=== PATIENT | male | born 1930 | race Caucasian/White ===

== ENCOUNTER 2016-12-16 02:48 | Inpatient (IN) | payer MEDICARE, MEDICAID ==
[~2016-12-16] VITALS: Ht 172.7 cm; Wt 72.8 kg
[~2016-12-16 02:48] MED LIST: BACT800T5 PO; COMB0.2S OU; FLOM5CAP PO; NEXI40CA PO; TIMO5OPD OU; TOPR50TA PO; TRAV04OPD OU; TYLE167L PO
[2016-12-16] MEDS ORDERED: ONDANSETRON 4MG/2ML VIAL (J2405) IV ONE (04:00)
[2016-12-16] MEDS ORDERED: MORPHINE 2 MG/ML 1ML SYRINGE IV PRN (04:00)
[2016-12-16 04:09] LABS: BASO % 0.6 % (0.0-1.0); EOS # 0.3 K/mm3 (0.0-0.50); LARGE UNSTAINED CELL # 0.1 K/mm3 (0.0-0.4); LYMPH # 1.6 K/mm3 (1.5-4.5); LYMPH % 17.5 % (24.0-44.0); MEAN CORPUSCULAR HEMOGLOBIN 31.7 pg (27.0-33.0); MEAN CORPUSCULAR HGB CONC 34.1 g/dl (32.0-36.5); MONO # 0.4 K/mm3 (0.0-0.8); MONO % 4.5 % (0.0-5.0); NEUTROPHILS # 6.4 K/mm3 (1.8-7.7); NEUTROPHILS % 73.5 % (36.0-66.0); PLATELET COUNT, AUTOMATED 191 k/mm3 (150-450); RED CELL DISTRIBUTION WIDTH 13.6 % (11.5-14.5); WHITE BLOOD COUNT 8.7 K/mm3 (4.0-10.0)
[2016-12-16 04:18] LABS: ANION GAP 5 MEQ/L (8-16); BLOOD UREA NITROGEN 18 MG/DL (7-18); CALCIUM LEVEL 8.9 MG/DL (8.8-10.2); CARBON DIOXIDE LEVEL 27 MEQ/L (21-32); CHLORIDE LEVEL 107 MEQ/L (98-107); CREATININE FOR GFR 2.05 MG/DL (0.70-1.30); GLOMERULAR FILTRATION RATE 33.1 (>35); GLUCOSE, FASTING 115 MG/DL (83-110); POTASSIUM SERUM 4.8 MEQ/L (3.5-5.1); SODIUM LEVEL 139 MEQ/L (136-145)
[2016-12-16] MEDS ORDERED: LevoFLOXacin IV 750 MG in APPROPRIATE DILUENT 1 EA IV ONE (05:45)
[2016-12-16] MEDS ORDERED: BETA0.5S9 OU (06:24)
--- NOTE | 2016-12-16 08:19 | REP ---
Chest one-view HISTORY: Chest pain Comparison: 02/03/2014 The lungs are clear. The heart is normal in size. The pulmonary vasculature is normal in appearance. Impression: No acute disease. Signed by Patrice Spivey MD 12/16/2016 08:11 A
[2016-12-16 08:35] VITALS: BP 187/85
--- NOTE | 2016-12-16 08:59 | REP ---
CT CHEST WITHOUT IV CONTRAST: CT chest performed without IV contrast, with sagittal and coronal reconstruction images performed. There is scattered interstitial fibrotic change. No acute infiltrate is seen. A few tiny calcified granulomas are seen bilaterally. There is mild bronchiectasis particularly in the lower lobes bilaterally. There is mild cardiomegaly. There is no pleural or pericardial effusion. No significant adenopathy is seen. There is a moderate hiatal hernia. Tiny calcified granulomas are seen in the spleen. IMPRESSION: Moderate sized hiatal hernia. Chronic changes in the lungs as discussed above. Signed by Cristian Thapa MD 12/16/2016 04:22 P
[2016-12-16] MEDS ORDERED: PANTOPRAZOLE 40MG TAB (PROTONIX) PO SCH (09:00)
[2016-12-16] MEDS ORDERED: METOCLOPRAMIDE 5 MG TAB PO PRN (10:15)
[2016-12-16] MEDS ORDERED: NITROGLYCERIN 0.4 MG SUBL TABLET SL PRN (10:45)
[2016-12-16] MEDS ORDERED: amLODIPine 5 MG TAB PO ONE (11:00)
[2016-12-16] MEDS ORDERED: GI COCKTAIL 50ML BTL(HYOSCYAMINE/MAALOX/LIDOCAINE VISCOUS)(1:3:1) PO ONE (11:00)
[2016-12-16] MEDS: HEPARIN SOD (PORCINE) 5000 UNITS/ML VIAL SQ SCH ×2 (11:17→21:55)
[2016-12-16] MEDS: PANTOPRAZOLE 40MG TAB (PROTONIX) PO SCH ×2 (11:17→21:55)
[2016-12-16] MEDS: METOPROLOL SUCC (TopROL XL) 50MG **XL** TAB PO SCH ×2 (11:18→21:00)
[2016-12-16] MEDS: SUCRALFATE 1 GM TAB PO SCH ×3 (11:18→21:55)
[2016-12-16 12:00] VITALS: BP 137/80
[2016-12-16] MEDS: BETAXOLOL 0.5% OU SCH ×2 (12:30→21:00)
[2016-12-16 16:00] VITALS: BP 119/58
--- NOTE | 2016-12-16 16:33 | HPE ---
DATE OF ADMISSION: 12/16/2016 CHIEF COMPLAINT: Chest pain. 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 Patient was sitting in his chair, he felt some pain in the left shoulder and subsequent left anterior chest pain with no radiation, worse when he took a deep breath accompanied by some cough, white sputum production, no fever or chills but usually feels cold at times. Patient had no chest heaviness, dizziness, lightheadedness, nausea or vomiting. Denies any shortness of breath. Patient denies any history of dysphasia or odynophagia. He has had a three pound weight loss from 183 pounds to 180 pounds. Denies any palpitations. Describes the pain as sharp in the left anterior chest, no radiation, no feeling of impending doom. No medications were taken at home aside from his chronic Prilosec and Nexium. He otherwise denies any hematemesis, bright red blood per rectum, melena, or black tarry stools. Patient was seen in the emergency room, EKG was unremarkable. No acute CT wave changes. Hospitalist was called for possible left lower lobe pneumonia. Upon interrogation, patient did not appear to have any signs or symptoms of infection. CT chest obtained showed chronic changes with clear lungs, no infiltrate. Formal report of chest x-ray shows no acute disease. Pulmonary vasculature is normal in appearance. Lungs are clear. Heart size is normal. CT chest showed moderate sized hiatal hernia and chronic changes in the lungs with scattered interstitial fibrosis, mild bronchiectasis in the lower lobes bilaterally but no acute infiltrates seen. Patient is admitted to rule out acute coronary syndrome and evaluate for atypical chest pain. PAST MEDICAL HISTORY: 1. Hypertension. 2. Urinary tract infection. 3. Chronic kidney disease stage 3. 4. Reflux. 5. Glaucoma. 6. Hiatal hernia. 7. 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 8. Left lower extremity osteomyelitis and trauma leading to left lower extremity amputation. PAST SURGICAL HISTORY: 1. Left hip repair. 2. Left leg amputation secondary to trauma and recurrent osteomyelitis. 3. Appendectomy. FAMILY HISTORY: Non-contributory. SOCIAL HISTORY: , but , lives with son. Denies alcohol or tobacco use. Two birds, no cats or dogs, no sick contacts. ALLERGIES: PENICILLIN from years ago. HOME MEDICATION: - metoprolol 50 mg twice a day - Nexium 40 mg daily - Combigan opthalmic solution, one drop both eyes twice a day - Travatan opthalmic solution, one drop daily both eyes - Timolol one drop both eyes twice a day REVIEW OF SYSTEMS: Per HPI. 12-point system negative aside from positive findings on history of present illness. PHYSICAL EXAMINATION: Vital signs: Temperature 98.8, pulse 72, respiratory 16, blood pressure 165/89, 87% on 2 liters nasal cannula. GENERAL: Awake, alert, and oriented times three, edentulous. Appears stated age , no jugular venous distention. No thyromegaly. Pupils equal, round, reactive to light. Extraocular muscles are intact. Normocephalic, atraumatic. LUNGS: Clear to auscultation. No wheezing, rales or rhonchi. NECK: Supple, full range of motion. No cervical lymphadenopathy or thyromegaly or jugular venous distention. HEART: S1, S2, sinus rhythm. No murmurs, rubs or gallops. ABDOMEN: Soft, non-tender, non-distended. Positive bowel sounds. EXTREMITIES: Left lower extremity amputation. Right lower extremity no edema. Blood culture is pending. LABORATORY DATA: White count 8l7, hemoglobin 15, hematocrit 45, platelets 191. 73% neurophil. Sodium 139, potassium 4.8, chloride 107, bicarbonate 27, BUN 18, creatinine 2, glucose 115. Total CK 69, MB fraction 1. Troponin less than 0.02. BNP 223. Microbiology: Blood culture is pending. IMAGING: Chest x-ray no acute disease. CT chest shows moderate sized hiatal hernia. Chronic changes in the lungs. 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 Chest x-ray was negative. EKG was unremarkable for acute ischemia, with troponin negative times two sets. CT chest shows a moderate sized hiatal hernia, patient admitted for evaluation of atypical chest pain. CURRENT ISSUES: 1. Atypical chest pain, most likely GI in nature, troponin s negative, EKG is unremarkable. Patient will be treated symptomatically with GI cocktail as needed , Carafate and Protonix 40 twice a day. Obtain H. pylori serum antibody, IgM and IgG serologies as well as upper GI series, rule out acute ulcer or obstruction. Patient has had a 3 pound weight loss, but denies any dysphasia or odynophagia to necessitate further workup with EGD. If persistent symptoms however may be referred as outpatient to circulating process inspector for further work up. Due to the chest pain, advanced age, hypertension, cardiovascular risk factors, will check lipid panel in the morning. Nitroglycerine as needed. Cycle cardiac markers every 6 hours. 2. Hypertension. Uncontrolled secondary to pain. Resume home dose of metoprolol. Norvasc if needed. Check lipid profile. 3. 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 4. Chronic kidney disease. Avoid nephrotoxins. Renally dose all medications. At baseline creatine. 5. History of reflux. Continue PPI change to twice a day dosing. 6. History of glaucoma. Continue with home eye drops, Combigan, Travatan, Timolol. 7. Deep vein thrombosis prophylaxis with subcutaneous Heparin. 8. PT clearance prior to discharge home. Discharge plan in the morning. MTDD
[2016-12-16] MEDS ORDERED: GI COCKTAIL 50ML BTL(HYOSCYAMINE/MAALOX/LIDOCAINE VISCOUS)(1:3:1) PO PRN (17:00)
--- NOTE | 2016-12-16 18:26 | ECGEPIP ---
Stationary ECG Study [facility] - ED Test Date: 2016-12-16 Pat Name: JOSÉ MIGUEL MANZANARES Department: Room: - Gender: M Clinical Support Tech: skip : 1930 Requested By: SHANIA Lopes Order Number: [id number] Reading MD: Cintia Escudero Measurements Intervals [place] Rate: 70 P: -37 NV: 156 QRS: -30 QRSD: 89 T: 18 QT: 386 QTc: 417 Interpretive Statements SINUS RHYTHM BORDERLINE LEFT AXIS DEVIATION NO PRIOR FOR COMPARISON Electronically Signed On 12-16-2016 18:26:05 EDT by Cintia Escudero
[2016-12-16 21:00] VITALS: BP 119/58
[2016-12-16] MEDS ORDERED: OPTHALMIC OU SCH (21:00)
[2016-12-16] MEDS ORDERED: COMBIGAN OU SCH (21:00)
[2016-12-16] MEDS ORDERED: LATANOPROST 0.005% OPHTH SOLN 2.5 ML OU SCH (21:00)
--- NOTE | 2016-12-16 23:13 | ECGEPIP ---
Stationary ECG Study [facility] Test Date: 2016-12-16 Pat Name: JOSÉ MIGUEL MAZNANARES Department: Room: [place] [address] Gender: M Cost Recovery Technician: [place] : 1930 Requested By: ZAIN Beltran Order Number: [id number] Reading MD: Nicola Doyle Measurements Intervals [place] Rate: 71 P: 53 VT: 162 QRS: -28 QRSD: 97 T: 29 QT: 376 QTc: 409 Interpretive Statements SINUS RHYTHM LEFT AXIS DEVIATION low precordial voltages. No significant change compared with 12/16/2016. Electronically Signed On 12-16-2016 23:13:15 EDT by Nicola Doyle
[2016-12-16 23:59] VITALS: BP 139/81
[2016-12-17 04:00] VITALS: BP 132/76
[2016-12-17 05:52] LABS: BASO % 0.5 % (0.0-1.0); EOS # 0.1 K/mm3 (0.0-0.50); EOS % 1.6 % (0.0-3.0); LARGE UNSTAINED CELL # 0.2 K/mm3 (0.0-0.4); LYMPH % 23.8 % (24.0-44.0); MEAN CORPUSCULAR HEMOGLOBIN 30.9 pg (27.0-33.0); MEAN CORPUSCULAR HGB CONC 32.4 g/dl (32.0-36.5); MEAN CORPUSCULAR VOLUME 95.4 fl (80.0-96.0); MONO # 0.5 K/mm3 (0.0-0.8); MONO % 6.4 % (0.0-5.0); NEUTROPHILS # 5.2 K/mm3 (1.8-7.7); NEUTROPHILS % 65.8 % (36.0-66.0); PLATELET COUNT, AUTOMATED 174 k/mm3 (150-450); RED CELL DISTRIBUTION WIDTH 13.7 % (11.5-14.5); WHITE BLOOD COUNT 7.9 K/mm3 (4.0-10.0)
[2016-12-17 06:19] LABS: ANION GAP 7 MEQ/L (8-16); BLOOD UREA NITROGEN 21 MG/DL (7-18); CALCIUM LEVEL 8.5 MG/DL (8.8-10.2); CARBON DIOXIDE LEVEL 24 MEQ/L (21-32); CHLORIDE LEVEL 109 MEQ/L (98-107); CHOLESTEROL LEVEL 184 MG/DL (<200); CREATININE FOR GFR 2.13 MG/DL (0.70-1.30); GLOMERULAR FILTRATION RATE 31.7 (>35); GLUCOSE, FASTING 87 MG/DL (83-110); POTASSIUM SERUM 4.5 MEQ/L (3.5-5.1); SODIUM LEVEL 140 MEQ/L (136-145); TRIGLYCERIDES LEVEL 138 MG/DL (<150)
[2016-12-17] MEDS ORDERED: MOXIFLOXACIN HCL 400 MG in APPROPRIATE DILUENT 1 EA IV SCH (07:00)
[2016-12-17 07:45] VITALS: BP 181/83
[2016-12-17] MEDS ORDERED: amLODIPine 5 MG TAB PO SCH (09:00)
[2016-12-17] MEDS ORDERED: COMBIGAN OU SCH (09:00)
[2016-12-17] MEDS ORDERED: OPTHALMIC OU SCH (09:00)
[2016-12-17] MEDS ORDERED: BETAXOLOL 0.5% OU SCH (09:00)
[2016-12-17] MEDS: SUCRALFATE 1 GM TAB PO SCH ×2 (09:25→12:12)
[2016-12-17] MEDS: HEPARIN SOD (PORCINE) 5000 UNITS/ML VIAL SQ SCH (09:26)
[2016-12-17 10:23] LABS: CONTROL LINE HPYORI INT CTR LINE PRESENT
[2016-12-17] MEDS ORDERED: SUCR1TA PO (11:10)
[2016-12-17] MEDS ORDERED: PANT40TA2 PO (11:10)
--- NOTE | 2016-12-17 12:10 | REP ---
LEFT SHOULDER, THREE VIEWS: HISTORY: Pain. There is no acute fracture or dislocation. There is narrowing of the joint spaces. Osteophytes are present at the acromioclavicular joint. IMPRESSION: Degenerative change as described above. Signed by Patrice Spivey MD 12/17/2016 12:17 P
[2016-12-17] MEDS: METOPROLOL SUCC (TopROL XL) 50MG **XL** TAB PO SCH (12:12)
[2016-12-17] MEDS: PANTOPRAZOLE 40MG TAB (PROTONIX) PO SCH (12:12)
--- NOTE | 2016-12-18 14:32 | DSES ---
DATE OF ADMISSION: 12/16/2016 DATE OF DISCHARGE: 12/17/2016 PRIMARY CARE PROVIDER: Bates Homar PRIMARY DISCHARGE DIAGNOSES: 1. Atypical chest pain. 2. Moderate hiatal hernia. 3. Probable gastritis or esophagitis. 4. History of chronic kidney disease stage III. 5. Chronic glaucoma. 6. History of left lower extremity amputation secondary to osteomyelitis and trauma. 7. Hypertension. DISCHARGE MEDICATIONS: - Carafate 1 gram before food and nightly - Protonix 40 mg twice a day - Norvasc 5 mg daily - metoprolol 50 mg twice a day - betaxolol one drop both eyes twice a day - Combigan one drop both eyes twice a day - Travatan C one drop both eyes at night FOLLOWUP ISSUES: The patient will need a referral to executive administrative asst due to atypical chest pain to rule out peptic ulcer disease. Currently on Carafate and proton pump inhibitor for moderate sized hiatal hernia and possible gastritis, left shoulder pain, patient refused x-ray of her left shoulder, complains of pain but refused evaluation. HOSPITAL COURSE: This is an 86-year-old male with a history of moderate hiatal hernia, chronic kidney disease stage III, baseline creatinine 1.92, hypertension , reflux, glaucoma, right ear deafness, left lower extremity amputation due to trauma and osteomyelitis, appendectomy, presented to the emergency room with acute onset of left sided chest pain that started while he was watching television at home sitting in his chair with no radiation. Accompanied with some cough, no sputum production or fevers. He denied any chest heaviness, dizziness , lightheadedness, nausea, or vomiting. Pleuritic in nature. No medications were taken at home. Does not change with position. The patient had a 3 pound weight loss but denies dysphagia or odynophagia. No prior esophagogastroduodenoscopy (EGD) in the past. Otherwise denies hematemesis, bright red blood per rectum, melena, black tarry stools. In the emergency room, EKG was unremarkable and shows left axis deviation but no acute ST-T changes. Chest x-ray was read as pneumonia. Hospitalist service was called by the emergency room for admission for left lower lobe pneumonia. Official reading on chest x-ray showed no acute disease. The patient did receive one dose of Levaquin. CT of the chest to rule out other etiologies showed moderate sized hiatal hernia, but no acute lung changes aside from mild bronchiectasis. The patient was given Carafate and Protonix with resolution of the chest pain, nitroglycerin as needed. He was sent for upper GI series, which he refused. He still complains of left shoulder pain. X-ray was ordered. The patient had no joint effusion. No fever or chills. He is discharged in stable condition to followup with his primary care physician. Cardiac markers were negative times three. Repeat EKG showed sinus rhythm, left axis deviation with no acute ST-T wave changes. LABORATORY DATA ON DISCHARGE: White count 7.9, hemoglobin 14, hematocrit 43, platelet count 174. Sodium 140, potassium 4.5, chloride 109, bicarbonate 24, BUN 21, creatinine 2.13 , glucose of 87. Influenza A and B on 12/17/2016 was negative. Methicillin resistant Staphylococcus aureus (MRSA) screen pending. Respiratory panel negative. Chest x-ray showed no active disease. Chest CT showed moderate sized hiatal hernia. Shoulder x-ray on the left pending official report. The patient refused upper GI series. Time spent on discharge: 30 minutes. LONNIE
== END 2016-12-17 13:36 | disposition home or self-care (01) | DRG 313 ==
LOC: M ED 02:48 → EDBD 02:48 → M ED INP 07:30 → M PCU 08:35
PROVIDERS: ADMIT General Practice; ATTEND General Practice
DX: R07.89 Other chest pain (principal); N18.3 Chronic kidney disease, stage 3 (moderate); I12.9 Hypertensive chronic kidney disease with stage 1 through stage 4 chronic kidney disease, or unspecified chronic kidney disease; Z79.899 Other long term (current) drug therapy; K44.9 Diaphragmatic hernia without obstruction or gangrene; H40.9 Unspecified glaucoma; K29.70 Gastritis, unspecified, without bleeding; K20.9 Esophagitis, unspecified; Z88.0 Allergy status to penicillin

== ENCOUNTER 2019-07-19 17:34 | Inpatient (IN) | payer MEDICARE, MEDICAID ==
[~2019-07-19] VITALS: Ht 175.3 cm; Wt 69.0 kg
[~2019-07-19 17:34] MED LIST changes: +BETA0.5S9 OU; +FLOM0.4C39 PO; -FLOM5CAP PO; +PANT40TA3 PO; +SUCR1TA PO
[2019-07-19 18:58] LABS: BASO % 0.3 % (0.0-1.0); EOS # 0.1 10^3/uL (0.0-0.5); EOS % 0.9 % (0.0-3.0); HEMOGLOBIN 13.6 g/dl (13.5-17.5); LYMPH % 9.1 % (24.0-44.0); MEAN CORPUSCULAR HEMOGLOBIN 28.2 pg (27.0-33.0); MEAN CORPUSCULAR HGB CONC 31.6 g/dl (32.0-36.5); MONO # 0.7 10^3/uL (0.0-0.8); MONO % 5.8 % (0.0-5.0); NEUTROPHILS # 9.4 10^3/uL (1.5-8.5); NEUTROPHILS % 83.3 % (36.0-66.0); PLATELET COUNT, AUTOMATED 238 10^3/uL (150-450); RED BLOOD COUNT 4.83 10^6/uL (4.30-6.10); WHITE BLOOD COUNT 11.3 10^3/uL (4.0-10.0)
[2019-07-19] MEDS ORDERED: NS 1,000 ML IV SCH (19:28)
[2019-07-19 19:31] LABS: ALBUMIN 2.5 GM/DL (3.2-5.2); BILIRUBIN,DIRECT 0.5 MG/DL (0.0-0.2); BILIRUBIN,TOTAL 0.9 MG/DL (0.2-1.0); CALCIUM LEVEL 8.4 MG/DL (8.8-10.2); CREATININE FOR GFR 5.51 MG/DL (0.70-1.30); FREE T4 1.53 NG/DL (0.76-1.46); GLOMERULAR FILTRATION RATE 10.5 (>35); POTASSIUM SERUM 3.5 MEQ/L (3.5-5.1); THYROID STIMULATING HORMONE 0.823 uIU/ML (0.358-3.740); TOTAL PROTEIN 7.6 GM/DL (6.4-8.2)
[2019-07-19 19:50] LABS: CK-MB VALUE MASS 1.1 NG/ML (<3.6); MB/CK RELATIVE INDEX 2.5 (< OR =4); TROPONIN I 0.32 NG/ML (< 0.10)
--- NOTE | 2019-07-19 20:10 | ECGEPIP ---
[facility] - ED Test Date: 2019-07-19 Pat Name: JOSÉ MIGUEL MANZANARES Department: Room: - Gender: Male Certified Athletic Trainer: RAMÍREZ : 1930 Requested By: NASIR Remy Order Number: [id number] Reading MD: Cintia Escudero Measurements Intervals [place] Rate: 85 P: 93 VA: 153 QRS: 9 QRSD: 89 T: 46 QT: 367 QTc: 438 Interpretive Statements SINUS RHYTHM MODERATE ST DEPRESSION baseline artifact may affect interpretation PRIOR OLD INFERIOR INFARCT INCREASED RATE 12/16/16 Electronically Signed on 07-19-2019 20:10:48 EST by Cintia Escudero
[2019-07-19] MEDS ORDERED: TRUS1SOL OU (20:17)
[2019-07-19] MEDS ORDERED: HYDR12.55 PO (20:17)
--- NOTE | 2019-07-19 20:58 | REPVR ---
PROCEDURE INFORMATION: Exam: CT Head Without Contrast Exam date and time: 07/19/2019 7:42 PM Age: 89 years old Clinical indication: Pain; Headache; Additional info: Altered mental status TECHNIQUE: Imaging protocol: Computed tomography of the head without contrast. Radiation optimization: All CT scans at this facility use at least one of these dose optimization techniques: automated exposure control; mA and/or kV adjustment per patient size (includes targeted exams where dose is matched to clinical indication); or iterative reconstruction. COMPARISON: CT Head without contrast 11/28/2013 2:31 PM FINDINGS: Brain: There is no acute cortical infarction, intracranial hemorrhage or mass.There is mild diffuse heterogeneity of the white matter attenuation, consistent with chronic white matter ischemic changes. Probable dilated perivascular space along the anterior commissure on the left versus prior lacunar infarction posterior margin left lentiform nucleus-unchanged. Ventricles: The ventricles appear enlarged, but not out of proportion to the degree of parenchymal volume loss. Bones/joints: Unremarkable. No acute fracture. Sinuses: Visualized sinuses are unremarkable. No fluid levels. Mastoid air cells: Visualized mastoid air cells are well aerated. Soft tissues: Unremarkable. Vasculature: Atherosclerosis. IMPRESSION: No acute intracranial findings. Electronically signed by: Amy Flores On 07/19/2019 20:58:01 PM
--- NOTE | 2019-07-19 21:25 | REPVR ---
PROCEDURE INFORMATION: Exam: CT Abdomen And Pelvis Without Contrast Exam date and time: 07/19/2019 8:53 PM Age: 89 years old Clinical indication: Abnormal findings; Abnormal lab test; Abnormal kidney function lab tests; Additional info: Gen abd pain TECHNIQUE: Imaging protocol: Computed tomography of the abdomen and pelvis without contrast. Radiation optimization: All CT scans at this facility use at least one of these dose optimization techniques: automated exposure control; mA and/or kV adjustment per patient size (includes targeted exams where dose is matched to clinical indication); or iterative reconstruction. COMPARISON: CT ABD PELVIS W/O CONTRAST 11/28/2013 4:10 PM FINDINGS: Lungs: There is eventration of the posterior margin of the left hemidiaphragm with associated consolidation left lower lobe. Pleural space: There is a left pleural effusion. Mediastinum: There is a hiatal hernia. Liver: There are no focal liver lesions present. Gallbladder and bile ducts: The gallbladder is normal. Pancreas: There is diffuse, benign fatty infiltration of the pancreas. Spleen: The spleen is normal. Adrenals: The adrenal glands are normal. Kidneys and ureters: The left kidney is atrophic. There is bilateral perinephric stranding. There is mild bilateral hydronephrosis without dilatation of the ureters. Stomach and bowel: There is no evidence of intestinal obstruction. Appendix: No evidence of appendicitis. Intraperitoneal space: Unremarkable. No free air. No significant fluid collection. Vasculature: There is no evidence of an abdominal aortic aneurysm. The vasculature demonstrates diffuse moderate atherosclerotic calcification. Lymph nodes: Unremarkable. No enlarged lymph nodes. Bladder: There is bladder wall thickening and small diverticula. Reproductive: Unremarkable as visualized. Bones/joints: Left hip plate and compression screw apparent. Skeletal degeneration with partial fusion of the sacroiliac joints. Soft tissues: Unremarkable. IMPRESSION: No acute findings in the abdomen and pelvis on this noncontrast examination. There is consolidation in the left lower lobe which is only partially imaged and could be due to subsegmental atelectasis, pneumonia or less likely a mass. There is a small left pleural effusion. Bladder wall thickening which may be associated with prostatic hypertrophy. There is mild bilateral hydronephrosis without hydroureters. Electronically signed by: Amy Flores On 07/19/2019 21:24:22 PM
[2019-07-19] MEDS ORDERED: AZITHROMYCIN INJ 500 MG, VIAL MATE ADAPTER 1 EACH in D5W 250 ML IV ONE (22:30)
[2019-07-19] MEDS ORDERED: cefTRIAXone SOD 1 GM in D5W MINI-BAG PLUS 50 ML IV ONE (22:30)
--- NOTE | 2019-07-19 23:58 | HPEPDOC ---
General Date of Admission 07/19/19 Date of Service: Jul 19, 2019 Chief Complaint The patient is a 89-year-old male admitted with a reason for visit of Groin Pain. Source: Patient Exam Limitations: Hard of hearing Timing/Duration: 4-6 hours Severity: Moderate Associated Symptoms: Weakness History of Present Illness Patient is 89 years old male with past medical history of hypertension, UTI, chronic kidney diseases stage III was admitted to the hospital with altered mental status. His son stated that he found the patient with altered mental status covered with urine and feces. On admission patient was disoriented, confused. In the ER patient was found to have mildly elevated leukocytes count 11.3, chest x-ray was negative for acute pulmonary infiltrate, troponin was elevated to 0.3, EKG showed depression ST in the anterolateral leads. Creatinine was significantly elevated of 5.5. CT abdomen showed No acute findings in the abdomen and pelvis on this noncontrast examination. Home Medications Scheduled Brimonidine Tartrate/Timolol (Combigan 0.2%-0.5% Eye Drops) 1 Fifi Fifi, 1 DROP OU BID, (Reported) Dorzolamide HCl (Trusopt) 2% 10ML Drops, 1 DROP OU TID, (Reported) 0700/1100/1500 Hydrochlorothiazide (Hydrochlorothiazide) 12.5 Mg Tablet, 12.5 MG PO DAILY, (Reported) Metoprolol Succinate (Toprol Xl) 50 Mg Tab, 50 MG PO BID, (Reported) Travoprost (Travatan Z) 50 Drop/2.5 Ml Soln, 1 DROP OU QHS, (Reported) Allergies Coded Allergies: Penicillins (Verified Adverse Reaction, Mild, 07/19/19) GI UPSET Past Medical History Medical History 1. Hypertension. 2. Urinary tract infection. 3. Chronic kidney disease stage 3. 4. Reflux. 5. Glaucoma. 6. Hiatal hernia. 7. 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 8. Left lower extremity osteomyelitis and trauma leading to left lower extremity amputation. Surgical History 1. Left hip repair. 2. Left leg amputation secondary to trauma and recurrent osteomyelitis. 3. Appendectomy. Family History I personally reviewed family history and found nonpertinent Social History * Smoker: Denies Alcohol: Denies Drugs: denies A-FIB/CHADSVASC A-FIB History Current/History of A-Fib/PAF?: No Current PO Anticoag Therapy: No Review of Systems Constitutional: Denies: Chills, Fever Eyes: Reports: Pain; Denies: Vision change ENT: Denies: Head Aches Skin: Denies: Rash Pulmonary: Denies: Dyspnea Cardiovascular: Denies: Chest Pain, Palpitations Gastrointestinal: Denies: Nausea, Vomiting Genitourinary: Reports: Dysuria; Denies: Frequency Hematologic: Denies: Bruising Endocrine: Denies: Polydipsia, Polyphagia Musculoskeletal: Denies: Neck Pain Neurological: Denies: Weakness Psych: Reports: Mood Normal Physical Examination General Exam: Positive: Other (somnolent and disoriented); Negative: Alert Eye Exam: Positive: PERRLA ENT Exam: Positive: Atraumatic Neck Exam: Positive: Supple; Negative: JVD Chest Exam: Positive: Diminished Heart Exam: Positive: Normal S1, Normal S2 Telemetry: Positive: No significant arrhythmia Abdomen Exam: Positive: Normal bowel sounds Extremity Exam: Negative: Clubbing, Cyanosis Skin Exam: Positive: Nl turgor and temperature Neuro Exam: Positive: Strength at 5/5 X4 ext, Cranial Nerves 3-12 NL Psych Exam: Positive: Other (somnolent and lethargic); Negative: Mental status NL Vital Signs Vital Signs Date Time Temp Pulse Resp B/P (MAP) Pulse Ox O2 Delivery O2 Flow Rate FiO2 07/19/19 21:15 86 18 122/74 (90) 94 Nasal Cannula 3.0 07/19/19 18:13 97.1 Laboratory Data Labs 24H Laboratory Tests 2 07/19/19 18:45: Immature Granulocyte % (Auto) 0.6, Neutrophils (%) (Auto) 83.3H, Lymphocytes (%) (Auto) 9.1L, Monocytes (%) (Auto) 5.8H, Eosinophils (%) (Auto) 0.9, Basophils (%) (Auto) 0.3, Neutrophils # (Auto) 9.4H, Lymphocytes # (Auto) 1.0L, Monocytes # (Auto) 0.7, Eosinophils # (Auto) 0.1, Basophils # (Auto) 0.0, Nucleated Red Blood Cells % (auto) 0.0, Anion Gap 14, Glomerular Filtration Rate 10.5L, Calcium Level 8.4L, Total Bilirubin 0.9, Direct Bilirubin 0.5H, Aspartate Amino Transf (AST/SGOT) 43H, Alanine Aminotransferase (ALT/SGPT) 28, Alkaline Phosphatase 104, Total Creatine Kinase 44, Creatine Kinase MB 1.1, Creatine Kinase MB Relative Index 2.50, Troponin I 0.32H, Total Protein 7.6, Albumin 2.5L, Albumin/Globulin Ratio 0.49L, Lipase 166, Thyroid Stimulating Hormone (TSH) 0.823, Free Thyroxine 1.53H 07/19/19 20:01: Urine Color YELLOW, Urine Appearance CLEAR, Urine pH 5.0, Urine Specific [place] 1.014, Urine Protein NEGATIVE, Urine Glucose (UA) NEGATIVE, Urine Ketones NEGATIVE, Urine Blood 2+H, Urine Nitrite NEGATIVE, Urine Bilirubin NEGATIVE, Urine Urobilinogen 0.2, Urine Leukocyte Esterase TRACEH, Urine WBC (Auto) 10H, Urine RBC (Auto) 13H, Urine Hyaline Casts (Auto) 0, Urine Bacteria (Auto) 1+H, Urine Squamous Epithelial Cells 0, Urine Mucus (Auto) SMALL, Urine Sperm (Auto) CBC/BMP Laboratory Tests 07/19/19 18:45 Microbiology Microbiology 07/19/19 Blood Culture, Received Pending 07/19/19 Blood Culture, Received Pending 07/19/19 Urine Culture, Received Pending Assessment/Plan Patient is 89 years old male with past medical history of hypertension, UTI, chronic kidney diseases stage III was admitted to the hospital with altered mental status. His son stated that he found the patient with altered mental status covered with urine and feces. On admission patient was disoriented, confused. In the ER patient was found to have mildly elevated leukocytes count 11.3, chest x-ray was negative for acute pulmonary infiltrate, troponin was elevated to 0.3, EKG showed depression ST in the anterolateral leads. Creatinine was significantly elevated of 5.5 Problems (1) Urinary tract infection Status: Acute Problem Text: Patient has a history of chronic urinary infection UA positive for bacteriuria Also patient was altered mental status Continue ceftriaxone (2) Elevated troponin Status: Acute Problem Text: Patient denied any chest pain Continue to monitor troponin Most likely demand ischemia, elevation of troponin can be secondary to acute renal failure Echo in the morning (3) Acute renal failure (ARF) Status: Acute Problem Text: Prerenal most likely secondary to dehydration IV fluid Continue to monitor will avoid nephrotoxic meds (4) Acute metabolic encephalopathy Problem Text: Most likely secondary to UTI Frequent re orientation (5) Physical deconditioning Status: Chronic Problem Text: PT/OT evaluation Plan / VTE VTE Prophylaxis Ordered?: Yes NIDIA KIM DO Jul 19, 2019 23:57
[2019-07-20] MEDS ORDERED: NS 1,000 ML IV SCH
[2019-07-20] MEDS: METOPROLOL SUCC (TopROL XL) 50MG **XL** TAB PO SCH ×3 (00:19→21:10)
[2019-07-20 03:30] VITALS: BP 133/75
[2019-07-20 05:04] LABS: HEMOGLOBIN 13.7 g/dl (13.5-17.5); MEAN CORPUSCULAR HGB CONC 31.1 g/dl (32.0-36.5); MEAN CORPUSCULAR VOLUME 89.8 fl (80.0-96.0); PLATELET COUNT, AUTOMATED 221 10^3/uL (150-450); WHITE BLOOD COUNT 9.6 10^3/uL (4.0-10.0)
[2019-07-20 05:29] LABS: CALCIUM LEVEL 8.6 MG/DL (8.8-10.2); CREATININE FOR GFR 4.99 MG/DL (0.70-1.30); GLOMERULAR FILTRATION RATE 11.8 (>35); MAGNESIUM LEVEL 2.2 MG/DL (1.8-2.4); MB/CK RELATIVE INDEX 3.77 (< OR =4); POTASSIUM SERUM 3.2 MEQ/L (3.5-5.1); TROPONIN I 0.68 NG/ML (< 0.10)
[2019-07-20] MEDS ORDERED: POTASSIUM CHLORIDE 10 MEQ SR TABLET PO ONE (06:15)
[2019-07-20 08:00] VITALS: BP 118/70
--- NOTE | 2019-07-20 08:09 | REP ---
Clinical: Altered mental status. Technique: PA and lateral. Comparison: 02/03/2014. Findings: Mediastinum and cardiac silhouette are stable. Lung dudley demonstrate chronic emphysematous changes and scattered scarring. Superimposed left lower lobe opacity noted. No pneumothorax. Skeletal structures intact. Impression: Left lower lobe consolidation / opacity. Follow up required. Electronically Signed by Wilver Cortes MD 07/20/2019 07:59 A
[2019-07-20] MEDS: HEPARIN SOD (PORCINE) 5000 UNITS/ML VIAL (J1644 PER 1000UNITS) SC SCH ×2 (08:18→21:10)
[2019-07-20] MEDS: cefTRIAXone SOD 1 GM in D5W MINI-BAG PLUS 50 ML IV SCH ×2 (08:18→21:11)
[2019-07-20] MEDS: DORZOLAMIDE 2% OPHTH SOLN 10 ML BTL OU SCH ×3 (08:22→21:10)
[2019-07-20 11:12] LABS: CK-MB VALUE MASS 2.5 NG/ML (<3.6); MB/CK RELATIVE INDEX 3.91 (< OR =4); TROPONIN I 0.56 NG/ML (< 0.10)
[2019-07-20 12:00] VITALS: BP 174/91
[2019-07-20 12:24] VITALS: BP 133/78
[2019-07-20] MEDS: guaiFENesin 200 MG TAB PO SCH ×2 (12:39→17:45)
[2019-07-20] MEDS ORDERED: PANTOPRAZOLE SODIUM 40 MG in D5W 50 ML IV SCH (13:00)
[2019-07-20] MEDS ORDERED: FUROSEMIDE 20 MG/2 ML VIAL (J1940) IV ONE (17:15)
--- NOTE | 2019-07-20 17:25 | IPNPDOC ---
Subjective Date Seen The patient was seen on 07/20/19. Subjective Chief Complaint/HPI Mr. Gastelum is an 89 year old male who was transported to [facility] ED after he was found in his home by his son with altered mental status, covered in his urine and feces. Pt CXR revealed that he has a LLL Pnuemonia. He is currently being treated with Azithromycin and Rocephin. Pt is seen sitting up in bed this morning and he stated he feels OK. He stated the only problem he was having this morning was he had a cough that has been present ofr months now that he wishes would go away. He is frequently unable to cough up any mucus and it bothers him. Although Mr. Gastelum appears very vital at this time, there is some residual confusion. He is AOx3, but his conversation drifts to past events at times; I am unsure if this is his baseline. General: Reports: Normal Appetite; Denies: Chills, Night Sweats, Fatigue, Malaise Constitutional: Denies: Chills, Fever, Night Sweats Eyes: Reports: Vision change; Denies: Pain ENT: Denies: Head Aches Skin: Denies: Rash Pulmonary: Reports: Cough; Denies: Dyspnea Cardiovascular: Denies: Chest Pain, Palpitations, Orthopnea, Paroxysmal Noc. Dyspnea, Lt Headedness Gastrointestinal: Denies: Nausea, Vomiting, Abdominal Pain, Diarrhea, Constipation Genitourinary: Denies: Dysuria, Retention Hematologic: Denies: Bruising Musculoskeletal: Denies: Neck Pain, Back Pain, Joint Pain, Muscle Pain, Spasms Neurological: Denies: Weakness, Numbness, Change in speech, Confusion Psych: Reports: Mood Normal, Memory Issues Objective Physical Examination General Exam: Positive: Alert, Cooperative, No Acute Distress, Other (thin, frail ) Eye Exam: Positive: Conjunctiva & lids normal; Negative: Sclera icteric ENT Exam: Positive: Atraumatic, Mucous membr. moist/pink, Pharynx Normal Neck Exam: Positive: Supple; Negative: JVD Chest Exam: Positive: Diminished (LLQ with diffuse crackles throughout b/l lungs ) Heart Exam: Positive: Rate Normal, Regular Rhythm, Other (distant heart sounds with faint S1S2) Telemetry: Positive: No significant arrhythmia Abdomen Exam: Positive: Normal bowel sounds, Soft; Negative: Tenderness Extremity Exam: Positive: Edema, Other (amputation LLE; stump intact ); Negative: Clubbing, Cyanosis Skin Exam: Positive: Nl turgor and temperature Neuro Exam: Positive: Normal Speech, Cranial Nerves 3-12 NL Psych Exam: Positive: Mood NL, Oriented x 3 Assessment /Plan Assessment Pt has a PMHx which includes: HTN, CKD Stage III, GERD, Hiatal hernia, deaf - right ear, 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 CT ABD & PELVIS W/O CONTRAST IMPRESSION: "No acute findings in the abdomen and pelvis on this noncontrast examination. There is consolidation in the left lower lobe which is only partially imaged and could be due to subsegmental atelectasis, pneumonia or less likely a mass. There is a small left pleural effusion. Bladder wall thickening which may be associated with prostatic hypertrophy. There is mild bilateral hydronephrosis without hydroureters." Chest, 2 view PA, Lat Impression: "Left lower lobe consolidation / opacity. Follow up required." CT Head without contrast IMPRESSION: "No acute intracranial findings." CAP, LLL - IV fluids d/c as pt has small LLL pleural effusion per CT and crackles - strict I&Os - currently treated with Rocephin and Azithromycin - mild leukocytosis resolved - pt has denied any Sx outside of cough - add incentive spirometry, Guaifenesin - sputum culture and stain - pending Acute Encephalopathy - UTI ruled out; Urine culture = negative - 2/2 to CAP - pt is AOx3 when seen this morning; however, conversation drifts to past , non- contributory events - I attempted to talk to his son or sister about his PMHx/baseline but the telephone numbers are incorrect and his family left prior to my returning to the unit - continue to monitor and try to discuss with family Elevated troponin EKG - prior inferior infarct, moderate ST depression with baseline artefact possibly affecting interpretation - Patient continues to deny CP - serial troponins have remained stable; CKs WNL - possibly 2/2 troponin leak vs ARF - pt scheduled for ECHO today - continue telemetry ARF on CKD III - the baseline Cr was 1.92 in 2017; more recent records are unavailable - possibly prerenal as CT revealed mild hydronephrosis - mild improvement with IVF - fluids on hold 2/2 volume overload and LLL effusion - Furosemide 20mg IV - re-check BMP to check kidney function Mild hypokalemia - replacement given IV - Mg WNL - re-check BMP Physical deconditioning with amputation LLE - chronic - PT/OT assessment and treatment GERD - pt reported heartburn to nursing staff - has a Hx of admission requiring GI cocktail d/t heartburn - start Protonix IV and carafate prophy Plan/VTE VTE Prophylaxis Ordered?: Yes (Heparin SQ ) VS, I&O, 24H, Fishbone Vital Signs/I&O Vital Signs Date Time Temp Pulse Resp B/P (MAP) Pulse Ox O2 Delivery O2 Flow Rate FiO2 07/20/19 12:24 97.1 84 18 133/78 (96) 94 Nasal Cannula 1.0 I&O- Last 24 Hours up to 6 AM 07/20/19 06:00 Intake Total 2055 ml Output Total 800 ml Balance 1255 ml Laboratory Data 24H LABS Laboratory Tests 2 07/19/19 18:45: Immature Granulocyte % (Auto) 0.6, Neutrophils (%) (Auto) 83.3H, Lymphocytes (%) (Auto) 9.1L, Monocytes (%) (Auto) 5.8H, Eosinophils (%) (Auto) 0.9, Basophils (%) (Auto) 0.3, Neutrophils # (Auto) 9.4H, Lymphocytes # (Auto) 1.0L, Monocytes # (Auto) 0.7, Eosinophils # (Auto) 0.1, Basophils # (Auto) 0.0, Nucleated Red Blood Cells % (auto) 0.0, Anion Gap 14, Glomerular Filtration Rate 10.5L, Calcium Level 8.4L, Total Bilirubin 0.9, Direct Bilirubin 0.5H, Aspartate Amino Transf (AST/SGOT) 43H, Alanine Aminotransferase (ALT/SGPT) 28, Alkaline Phosphatase 104, Total Creatine Kinase 44, Creatine Kinase MB 1.1, Creatine Kinase MB Relative Index 2.50, Troponin I 0.32H, Total Protein 7.6, Albumin 2.5L, Albumin/Globulin Ratio 0.49L, Lipase 166, Thyroid Stimulating Hormone (TSH) 0.823, Free Thyroxine 1.53H 07/19/19 20:01: Urine Color YELLOW, Urine Appearance CLEAR, Urine pH 5.0, Urine Specific [place] 1.014, Urine Protein NEGATIVE, Urine Glucose (UA) NEGATIVE, Urine Ketones NEGATIVE, Urine Blood 2+H, Urine Nitrite NEGATIVE, Urine Bilirubin NEGATIVE, Urine Urobilinogen 0.2, Urine Leukocyte Esterase TRACEH, Urine WBC (Auto) 10H, Urine RBC (Auto) 13H, Urine Hyaline Casts (Auto) 0, Urine Bacteria (Auto) 1+H, Urine Squamous Epithelial Cells 0, Urine Mucus (Auto) SMALL, Urine Sperm (Auto) 07/20/19 04:40: Nucleated Red Blood Cells % (auto) 0.0, Anion Gap 13, Glomerular Filtration Rate 11.8L, Calcium Level 8.6L, Total Creatine Kinase 53, Creatine Kinase MB 2.0, Creatine Kinase MB Relative Index 3.77, Troponin I 0.68#H, Magnesium Level 2.2 07/20/19 09:41: Total Creatine Kinase 64, Creatine Kinase MB 2.5, Creatine Kinase MB Relative Index 3.91, Troponin I 0.56H 07/20/19 13:08: Troponin I 0.61H CBC/BMP Laboratory Tests 07/19/19 18:45 07/20/19 04:40 Microbiology Microbiology 07/19/19 Blood Culture, Received Pending 07/19/19 Blood Culture, Received Pending 07/19/19 Urine Culture - Final, Complete LAUREANO GREEN PA-C Jul 20, 2019 17:25
[2019-07-20] MEDS: SUCRALFATE SUSP 1GM/10ML UD PO SCH (17:45)
[2019-07-20] MEDS: PANTOPRAZOLE 40MG INJ (PROTONIX) (C9113) IV SCH (17:46)
[2019-07-20 20:00] VITALS: BP 156/87
[2019-07-20] MEDS: AZITHROMYCIN 250 MG TAB PO SCH (21:07)
[2019-07-21] VITALS: BP 159/83
[2019-07-21] MEDS: guaiFENesin 200 MG TAB PO SCH ×5 (00:11→23:08)
[2019-07-21 04:00] VITALS: BP 167/85
[2019-07-21 06:02] LABS: HEMATOCRIT 40.1 % (42.0-52.0); HEMOGLOBIN 12.4 g/dl (13.5-17.5); MEAN CORPUSCULAR HGB CONC 30.9 g/dl (32.0-36.5); MEAN CORPUSCULAR VOLUME 90.5 fl (80.0-96.0); PLATELET COUNT, AUTOMATED 214 10^3/uL (150-450); RED BLOOD COUNT 4.43 10^6/uL (4.30-6.10); WHITE BLOOD COUNT 11.2 10^3/uL (4.0-10.0)
[2019-07-21 06:39] LABS: ALBUMIN 2.1 GM/DL (3.2-5.2); BILIRUBIN,TOTAL 0.8 MG/DL (0.2-1.0); CALCIUM LEVEL 8.4 MG/DL (8.8-10.2); CREATININE FOR GFR 4.88 MG/DL (0.70-1.30); GLOMERULAR FILTRATION RATE 12.1 (>35); POTASSIUM SERUM 3.4 MEQ/L (3.5-5.1); TOTAL PROTEIN 7.7 GM/DL (6.4-8.2)
--- NOTE | 2019-07-21 07:15 | ECHO ---
DATE OF PROCEDURE: 07/20/2019 DATE OF : 1930 AGE: 89 GENDER: Male HEIGHT: 69 inches WEIGHT: 189 pounds BODY SURFACE AREA: 2.02 m2 INPATIENT: U - Room 3228 REFERRING PHYSICIAN: Dr. Francisco Bennett INDICATION: Abnormal EKG. MEASUREMENTS 2-D Measurements: RV: 4.1 cm LV: 4.0 cm Septum: 1.2 cm Posterior wall: 1.2 cm Aortic root: 4.0 cm LA: 3.6 cm LVEF: 70% Doppler Measurements: AV: 1.23 m/s LVOT: 0.8 m/s LVOT diameter: 2.0 cm MV - E 45 A 82 EA ratio 0.6 Early mitral deceleration time: 256 ms Because of the patient's body habitus, we were unable to obtain Doppler assessment of his pulmonary trunk or tricuspid valve to estimate his pulmonary arterial pressure. His inferior vena cava could not be visualized to assess his central venous pressure. COMMENTS: Normal sinus rhythm without intraventricular conduction disturbance. Technically difficult study in light of the patient's body habitus, but some diagnostically useful information was still obtained. M-mode and two-dimensional echocardiography was performed with pulsed, continuous wave and color flow. We could not attempt tissue Doppler because, again, his body habitus. Borderline left ventricle hypertrophy with hyperkinetic wall motion. Left atrial size upper limits of normal with at least grade 1 LV diastolic dysfunction. Right heart chamber sizes upper limits of normal with normal free wall motion, but we were unable to estimate his right ventricular systolic or pulmonary arterial systolic pressures. Moderate aortic valvular sclerosis with adequate cusp separation and only trace insufficiency. Mildly dilated aortic root with the ascending aorta upper limits of normal. Mild mitral annular thickening with adequate leaflet excursion and no posterior systolic buckling. We could not visualize mitral insufficiency. No pericardial effusion or intracardiac mass could be visualized. MTDD
[2019-07-21 08:00] VITALS: BP 161/99
[2019-07-21] MEDS: DORZOLAMIDE 2% OPHTH SOLN 10 ML BTL OU SCH ×3 (08:27→20:45)
[2019-07-21] MEDS: SUCRALFATE SUSP 1GM/10ML UD PO SCH ×3 (08:27→16:55)
[2019-07-21] MEDS: HEPARIN SOD (PORCINE) 5000 UNITS/ML VIAL (J1644 PER 1000UNITS) SC SCH ×2 (08:28→20:44)
[2019-07-21] MEDS: cefTRIAXone SOD 1 GM in D5W MINI-BAG PLUS 50 ML IV SCH ×2 (08:28→20:45)
[2019-07-21] MEDS: METOPROLOL SUCC (TopROL XL) 50MG **XL** TAB PO SCH ×2 (08:29→20:44)
[2019-07-21 11:00] VITALS: BP 124/64
--- NOTE | 2019-07-21 13:54 | IPNPDOC ---
Text Note Date of Service The patient was seen on 07/21/19. NOTE Subjective Chief Complaint/HPI Mr. Gastelum is an 89 year old male who was transported to [facility] ED after he was found in his home by his son with altered mental status, covered in his own urine and feces. Pt CXR revealed that he has a LLL Pnuemonia. He is currently being treated with Azithromycin and Rocephin. Pt is seen sitting comfortably in a recliner eating breakfast this morning. He reported he is doing much better this morning. He's got 'medicines just coming and going from all over the place!' he continues to report a cough, now the mucus is easier to expectorate. Spoke to Ayana (daughter) this morning by telephone. She will provide the name of the pt's PCP to us. She is unaware of him being treated for or having any chronic heart or kidney disease. She reported at his baseline, her father is very independent - drives to visit her family an hour away 1-2 times per week. She denied him being incontinent at baseline. She would like him to move closer to her to an elderly community when he can. Per Dr. Penny - Pt home was in poor shape prior to admission. Pt reported that he, his son and grandchild who lived in the home had been sick for some time and unable to clean up. Objective Physical Examination General Exam: Positive: Alert, Cooperative, No Acute Distress, Other (thin, frail ) Eye Exam: Positive: Conjunctiva & lids normal; Negative: Sclera icteric ENT Exam: Positive: Atraumatic, Mucous membr. moist/pink, Pharynx Normal Neck Exam: Positive: Supple; Negative: JVD Chest Exam: Positive: Diminished (LLQ with diffuse crackles throughout b/l lungs ) Heart Exam: Positive: Rate Normal, Regular Rhythm, Other (distant heart sounds with faint S1S2) Telemetry: Positive: No significant arrhythmia Abdomen Exam: Positive: Normal bowel sounds, Soft; Negative: Tenderness Extremity Exam: Positive: Edema, Other (amputation LLE; stump intact ); Negative: Clubbing, Cyanosis Skin Exam: Positive: Nl turgor and temperature Neuro Exam: Positive: Normal Speech, Cranial Nerves 3-12 NL Psych Exam: Positive: Mood NL, Oriented x 3 Assessment /Plan Assessment Pt has a PMHx which includes: HTN, CKD Stage III, GERD, Hiatal hernia, deaf - right ear, 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 CT ABD & PELVIS W/O CONTRAST IMPRESSION: "No acute findings in the abdomen and pelvis on this noncontrast examination. There is consolidation in the left lower lobe which is only partially imaged and could be due to subsegmental atelectasis, pneumonia or less likely a mass. There is a small left pleural effusion. Bladder wall thickening which may be associated with prostatic hypertrophy. There is mild bilateral hydronephrosis without hydroureters." Chest, 2 view PA, Lat Impression: "Left lower lobe consolidation / opacity. Follow up required." CT Head without contrast IMPRESSION: "No acute intracranial findings." CAP, LLL - IV fluids d/c as pt has small LLL pleural effusion per CT and crackles - strict I&Os - currently treated with Rocephin and Azithromycin - mild leukocytosis noted - pt has denied any Sx outside of cough - continue incentive spirometry, Guaifenesin - sputum culture and stain - pending Acute Encephalopathy - UTI ruled out; Urine culture = negative - 2/2 to CAP - pt is AOx3 when seen this morning; however, conversation nonsensical at times - spoke with daughter. See HPI Elevated troponin EKG - prior inferior infarct, moderate ST depression with baseline artefact possibly affecting interpretation - Patient continues to deny CP - serial troponins have remained stable; CKs WNL - possibly 2/2 troponin leak vs ARF - ECHO - limited but at least grade 1 LV diastolic dysfunction - continue telemetry HFpEF - per ECHO - repeat Furosemide 20mg IV as diffuse crackles subjectively, slightly improved this a.m. - replenish electrolytes prn ARF on CKD III - the baseline Cr was 1.92 in 2017; more recent records are unavailable - possibly prerenal as CT revealed mild hydronephrosis - fluids on hold 2/2 volume overload and LLL effusion - repeat Furosemide 20mg IV - bladder scan this morning >999cc; mackenzie catheter placed - daily BMPs Mild hypokalemia - replacement given IV - Mg WNL - re-check BMP Physical deconditioning with amputation LLE - chronic - PT/OT assessment and treatment GERD - pt reported heartburn to nursing staff - has a Hx of admission requiring GI cocktail d/t heartburn - start Protonix IV and carafate prophy Plan/VTE VTE Prophylaxis Ordered?: Yes (Heparin SQ ) Dispo: Placement on d/c. PFS to work with family. VS,Fishbone, I+O VS, Fishbone, I+O Laboratory Tests 07/21/19 05:44 Vital Signs Date Time Temp Pulse Resp B/P (MAP) Pulse Ox O2 Delivery O2 Flow Rate FiO2 07/21/19 11:00 97.6 94 20 124/64 (84) 97 Room Air 07/21/19 08:00 1.0 I&O- Last 24 Hours up to 6 AM 07/21/19 06:00 Intake Total 1640 ml Balance 1640 ml LAUREANO GREEN PA-C Jul 21, 2019 13:54
[2019-07-21 14:00] VITALS: BP 132/87
[2019-07-21] MEDS ORDERED: POTASSIUM CHLORIDE 10 MEQ SR TABLET PO ONE (14:00)
[2019-07-21] MEDS: PANTOPRAZOLE 40MG INJ (PROTONIX) (C9113) IV SCH (16:56)
[2019-07-21] MEDS ORDERED: FUROSEMIDE 20 MG/2 ML VIAL (J1940) IV ONE (17:00)
[2019-07-21] MEDS: AZITHROMYCIN 250 MG TAB PO SCH (20:45)
[2019-07-21 22:00] VITALS: BP 128/78
[2019-07-22 06:00] VITALS: BP 132/72
[2019-07-22] MEDS: guaiFENesin 200 MG TAB PO SCH ×3 (06:05→17:27)
[2019-07-22 06:10] LABS: HEMATOCRIT 36.5 % (42.0-52.0); HEMOGLOBIN 11.7 g/dl (13.5-17.5); MEAN CORPUSCULAR HEMOGLOBIN 28.5 pg (27.0-33.0); MEAN CORPUSCULAR HGB CONC 32.1 g/dl (32.0-36.5); PLATELET COUNT, AUTOMATED 210 10^3/uL (150-450)
[2019-07-22 06:31] LABS: ALBUMIN 2.1 GM/DL (3.2-5.2); BILIRUBIN,TOTAL 0.6 MG/DL (0.2-1.0); CALCIUM LEVEL 7.8 MG/DL (8.8-10.2); CREATININE FOR GFR 4.12 MG/DL (0.70-1.30); GLOMERULAR FILTRATION RATE 14.7 (>35); POTASSIUM SERUM 3.4 MEQ/L (3.5-5.1)
[2019-07-22 06:40] VITALS: BP 136/79
[2019-07-22] MEDS: SUCRALFATE SUSP 1GM/10ML UD PO SCH ×3 (07:30→17:27)
[2019-07-22] MEDS ORDERED: ACETAMINOPHEN TAB 650MG DOSE (2X325MG) PO ONE (08:00)
[2019-07-22] MEDS ORDERED: POTASSIUM CHLORIDE 10 MEQ SR TABLET PO ONE (09:15)
[2019-07-22] MEDS ORDERED: FUROSEMIDE 40 MG/4 ML VIAL (J1940) IV ONE (09:15)
[2019-07-22] MEDS: cefTRIAXone SOD 1 GM in D5W MINI-BAG PLUS 50 ML IV SCH ×2 (09:55→21:42)
[2019-07-22] MEDS: HEPARIN SOD (PORCINE) 5000 UNITS/ML VIAL (J1644 PER 1000UNITS) SC SCH ×2 (09:56→21:43)
[2019-07-22] MEDS: METOPROLOL SUCC (TopROL XL) 50MG **XL** TAB PO SCH ×2 (09:57→21:42)
[2019-07-22] MEDS: DORZOLAMIDE 2% OPHTH SOLN 10 ML BTL OU SCH ×3 (09:57→21:43)
[2019-07-22] MEDS ORDERED: ACETAMINOPHEN 500 MG TAB PO PRN (11:30)
--- NOTE | 2019-07-22 12:29 | REP ---
Clinical: Left-sided chest pain. Technique: PA and lateral. Comparison: 07/19/2019. Findings: Mediastinum and cardiac silhouette are stable and within normal limits. Lung dudley demonstrate diffuse chronic interstitial changes. Superimposed left lower lobe opacity is again suspected. No effusion. No pneumothorax. Skeletal structures intact. Impression: Left lower lobe opacity. Electronically Signed by Wilver Cortes MD 07/22/2019 12:19 P
[2019-07-22 13:57] LABS: CALCIUM LEVEL 8.5 MG/DL (8.8-10.2); CREATININE FOR GFR 4.1 MG/DL (0.70-1.30); GLOMERULAR FILTRATION RATE 14.8 (>35); POTASSIUM SERUM 3.8 MEQ/L (3.5-5.1)
[2019-07-22 14:00] VITALS: BP 127/74
--- NOTE | 2019-07-22 14:02 | IPNPDOC ---
Text Note Date of Service The patient was seen on 07/22/19. NOTE Subjective Chief Complaint/HPI Mr. Gastelum is an 89 year old male who was transported to [facility] ED after he was found in his home by his son with altered mental status, covered in his own urine and feces. Pt CXR revealed that he has a LLL Pneumonia. He is currently being treated with Azithromycin and Rocephin. Pt is seen sitting up in bed, enjoying his porridge. He reported some pain in his L side overnight that has 'pretty much gone' when being seen. He is unable to describe the pain very well to me thins morning. However, it was re-produced with deep inhalation and with palpation, located over the L lower ribs and is sharp when present. Objective Physical Examination General Exam: Positive: Alert, Cooperative, No Acute Distress, Other (thin, frail ) Eye Exam: Positive: Conjunctiva & lids normal; Negative: Sclera icteric ENT Exam: Positive: Atraumatic, Mucous membr. moist/pink, Pharynx Normal Neck Exam: Positive: Supple; Negative: JVD Chest Exam: Positive: Diminished (LLQ with diffuse crackles throughout b/l lungs L>>R ), Pleuritic CP as described in HPI Heart Exam: Positive: Rate Normal, Regular Rhythm, Other (distant heart sounds with faint S1S2) Telemetry: Positive: No significant arrhythmia Abdomen Exam: Positive: Normal bowel sounds, Soft; Negative: Tenderness Extremity Exam: Positive: Edema, Other (amputation LLE); Negative: Clubbing, Cyanosis Skin Exam: Positive: Nl turgor and temperature Neuro Exam: Positive: Normal Speech, Cranial Nerves 3-12 NL Psych Exam: Positive: Mood NL, Oriented x 3 Assessment /Plan Assessment Mr. Gastelum is an 89 year old male who was transported to [facility] ED after he was found in his home by his son with altered mental status, covered in his own urine and feces. Pt CXR revealed that he has a LLL Pneumonia. He is currently being treated with Azithromycin and Rocephin. 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 Spoke to Ayana (daughter) 07/21/19 by telephone. She will provide the name of the pt's PCP to us. She is unaware of him being treated for or having any chronic heart or kidney disease. She reported at his baseline, her father is very independent - drives to visit her family an hour away 1-2 times per week. She denied him being incontinent at baseline. She would like him to move closer to her to an elderly community when he can. Per Dr. Penny - Pt home was in poor shape prior to admission. Pt reported that he, his son and grandchild who lived in the home had been sick for some time and unable to clean up. Adult Protective services are now involved. CT ABD & PELVIS W/O CONTRAST IMPRESSION: "No acute findings in the abdomen and pelvis on this noncontrast examination. There is consolidation in the left lower lobe which is only partially imaged and could be due to subsegmental atelectasis, pneumonia or less likely a mass. There is a small left pleural effusion. Bladder wall thickening which may be associated with prostatic hypertrophy. There is mild bilateral hydronephrosis without hydroureters." Chest, 2 view PA, Lat Impression: "Left lower lobe consolidation / opacity. Follow up required." CT Head without contrast IMPRESSION: "No acute intracranial findings." CAP, LLL - IV fluids d/c as pt has small LLL pleural effusion per CT and crackles - strict I&Os - currently treated with Rocephin and Azithromycin - mild leukocytosis - resolved - pt has denied any Sx outside of cough - continue incentive spirometry, Guaifenesin - sputum culture and stain - pending - blood cultures x 2 - negative @ 48hrs Plueritic CP - L sided, waxing and waning - per nursing, pt reported 9/10 pain over the L side. I immediately went to assess him but he had fallen asleep. - CXR: LLL opacity, no effusion - on awakening, pt denied further CP - Moist heat & analgesics. monitor Sx. Acute Encephalopathy - UTI ruled out; Urine culture = negative - 2/2 to CAP - pt is able to have a sensible conversation this morning. He told me he goes to the doctor in [place], hasn't been in over a year because his car acts up in bad weather. - Records from PCP received Elevated troponin EKG - prior inferior infarct, moderate ST depression with baseline artefact possibly affecting interpretation - pt denied CP - serial troponins have remained stable; CKs WNL - possibly 2/2 troponin leak vs ARF - ECHO - limited but at least grade 1 LV diastolic dysfunction - continue telemetry HFpEF - per ECHO, likely chronic - given Furosemide 40mg IV as diffuse crackles subjectively, slightly improved this a.m. - replenish electrolytes prn ARF on CKD III - Cr from 02/04/19 (PCP in [place]) 2.3 - possibly prerenal as CT revealed mild hydronephrosis; also showed L kidney atrophy with b/l stranding - d/c IV fluids 2/2 volume overload and prior LLL effusion - Furosemide 40mg IV given - following Sterling, >999cc post-void urine per nursing - daily BMPs Urinary Retention - likely 2/[address] - continue Sterling catheter with strict I&Os Mild hypokalemia - replacement given IV - Mg WNL - re-check BMP Physical deconditioning with amputation LLE - chronic - PT/OT assessment and treatment GERD - pt reported heartburn to nursing staff - has a Hx of admission requiring GI cocktail d/t heartburn - start Protonix IV and carafate prophy Plan/VTE VTE Prophylaxis Ordered?: Yes (Heparin SQ ) Dispo: Placement on d/c. PFS to work with family. Adult Protective Services reportedly involved (note above). VS,Fishbone, I+O VS, Fishbone, I+O Laboratory Tests 07/22/19 05:45 Vital Signs Date Time Temp Pulse Resp B/P (MAP) Pulse Ox O2 Delivery O2 Flow Rate FiO2 07/22/19 09:57 85 129/72 07/22/19 06:40 98.0 20 98 Room Air 07/21/19 08:00 1.0 I&O- Last 24 Hours up to 6 AM 07/22/19 06:00 Intake Total 1370 ml Output Total 2825 ml Balance -1455 ml LAUREANO GREEN PA-C Jul 22, 2019 14:02
[2019-07-22] MEDS: PANTOPRAZOLE 40MG INJ (PROTONIX) (C9113) IV SCH (17:27)
[2019-07-22] MEDS: AZITHROMYCIN 250 MG TAB PO SCH (21:42)
[2019-07-22 22:00] VITALS: BP 135/76
[2019-07-23] MEDS: guaiFENesin 200 MG TAB PO SCH ×5 (00:12→23:30)
[2019-07-23 06:00] VITALS: BP 127/79
[2019-07-23] MEDS: SUCRALFATE SUSP 1GM/10ML UD PO SCH ×3 (06:33→18:06)
[2019-07-23 06:54] LABS: HEMATOCRIT 37.5 % (42.0-52.0); HEMOGLOBIN 11.8 g/dl (13.5-17.5); MEAN CORPUSCULAR HEMOGLOBIN 28.4 pg (27.0-33.0); MEAN CORPUSCULAR HGB CONC 31.5 g/dl (32.0-36.5); MEAN CORPUSCULAR VOLUME 90.4 fl (80.0-96.0); PLATELET COUNT, AUTOMATED 208 10^3/uL (150-450); RED BLOOD COUNT 4.15 10^6/uL (4.30-6.10); WHITE BLOOD COUNT 9.4 10^3/uL (4.0-10.0)
[2019-07-23 07:15] LABS: ALBUMIN 2.1 GM/DL (3.2-5.2); BILIRUBIN,TOTAL 0.5 MG/DL (0.2-1.0); CALCIUM LEVEL 8.5 MG/DL (8.8-10.2); CREATININE FOR GFR 3.59 MG/DL (0.70-1.30); GLOMERULAR FILTRATION RATE 17.2 (>35); POTASSIUM SERUM 3.4 MEQ/L (3.5-5.1); TOTAL PROTEIN 8.1 GM/DL (6.4-8.2)
[2019-07-23 08:04] LABS: MAGNESIUM LEVEL 1.9 MG/DL (1.8-2.4); PHOSPHORUS LEVEL 4.3 MG/DL (2.5-4.9)
[2019-07-23] MEDS: METOPROLOL SUCC (TopROL XL) 50MG **XL** TAB PO SCH ×2 (10:03→21:19)
[2019-07-23] MEDS: DORZOLAMIDE 2% OPHTH SOLN 10 ML BTL OU SCH ×3 (10:04→21:20)
[2019-07-23] MEDS: cefTRIAXone SOD 1 GM in D5W MINI-BAG PLUS 50 ML IV SCH ×2 (10:04→21:36)
[2019-07-23] MEDS: HEPARIN SOD (PORCINE) 5000 UNITS/ML VIAL (J1644 PER 1000UNITS) SC SCH ×2 (10:04→21:20)
[2019-07-23 14:00] VITALS: BP 128/78
--- NOTE | 2019-07-23 17:37 | IPNPDOC ---
Text Note Date of Service The patient was seen on 07/23/19. NOTE SUBJECTIVE: Mr. Gastelum is an 89 year old male who was transported to [facility] ED a fter he was found in his home by his son with altered mental status, covered in his own urine and feces. Pt CXR revealed that he has a LLL Pneumonia. He is currently being treated with Azithromycin and Rocephin. Pt is seen sitting up in bed, waiting breakfast. saying he is hungry and the food is still not here. Says feeling much improved. No fever or chills, good urine output in the Mackenzie. Objective Physical Examination General Exam: Positive: Alert, Cooperative, No Acute Distress, Other (thin, frail ) Eye Exam: Positive: Conjunctiva & lids normal; Negative: Sclera icteric ENT Exam: Positive: Atraumatic, Mucous membr. moist/pink, Pharynx Normal Neck Exam: Positive: Supple; Negative: JVD Chest Exam: Positive: Diminished (LLQ with diffuse crackles at athe bases L>>R ). No wheezing or ronchi. Heart Exam: Positive: Rate Normal, Regular Rhythm, Normal S1, S2, no rub, murmur or gallop. Abdomen Exam: Positive: Normal bowel sounds, Soft; Negative: Tenderness Extremity Exam: Positive: Edema, Other (amputation Left AKA); Negative: Clubbing, Cyanosis Skin Exam: Positive: Nl turgor and temperature Neuro Exam: Positive: Normal Speech, Cranial Nerves 3-12 NL Psych Exam: Positive: Mood NL, Oriented x 3 Assessment /Plan Mr. Gastelum is an 89 year old male who was transported to [facility] ED after he was found in his home by his son with altered mental status, covered in his own urine and feces. Pt CXR revealed that he has a LLL Pneumonia. He is currently being treated with Azithromycin and Rocephin. 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 She will provide the name of the pt's PCP to us. She is unaware of him being treated for or having any chronic heart or kidney disease. She reported at his baseline, her father is very independent - drives to visit her family an hour away 1-2 times per week. She denied him being incontinent at baseline. She would like him to move closer to her to an elderly community when he can. Per Dr. Penny - Pt home was in poor shape prior to admission. Pt reported that he, his son and grandchild who lived in the home had been sick for some time and unable to clean up. Adult Protective services are now involved. CT ABD & PELVIS W/O CONTRAST IMPRESSION: "No acute findings in the abdomen and pelvis on this noncontrast examination. There is consolidation in the left lower lobe which is only partially imaged and could be due to subsegmental atelectasis, pneumonia or less likely a mass. There is a small left pleural effusion. Bladder wall thickening which may be associated with prostatic hypertrophy. There is mild bilateral hydronephrosis without hydroureters." Chest, 2 view PA, Lat Impression: "Left lower lobe consolidation / opacity. Follow up required." CT Head without contrast IMPRESSION: "No acute intracranial findings." Acute metabolic encephlopathy -due to pneumonia -present on admission now resolved CAP, LLL - currently treated with Rocephin and Azithromycin - continue incentive spirometry, Guaifenesin - sputum not available. - blood cultures x 2 - negative False positive troponin -due to JENNY. -EKG - prior inferior infarct, moderate ST depression with baseline artefact possibly affecting interpretation -No acute changes, no chest pain. -ECHO - limited but at least grade 1 LV diastolic dysfunction HFpEF - per ECHO, likely chronic - will hold of on further lasix and pateint is high negative balance of 1900. JENNY on CKD III - Cr from 02/04/19 (PCP in [place]) 2.3 -JENNY due to obstructive uropathy most likely. CT with mild bilateral hydro -Mackenzie placement produced > 900 ml urine. -Now creatinine improving with the relief of obs. Acute Urinary Retention - likely 2/[address] - continue Mackenzie catheter with strict I&Os -will continue mackenzie on discharge -will have to set up urology referral. Hypertension -continue metoprolol Mild hypokalemia replaced. Physical deconditioning with amputation LLE - chronic - PT/OT assessment and treatment GERD - pt reported heartburn to nursing staff - has a Hx of admission requiring GI cocktail d/t heartburn - Protonixand carafate prophy Plan/VTE VTE Prophylaxis Ordered?: Yes (Heparin SQ ) Dispo: Placement on d/c. PFS to work with family. Adult Protective Services reportedly involved (note above). VS,Fishbone, I+O VS, Fishbone, I+O Laboratory Tests 07/23/19 06:29 Vital Signs Date Time Temp Pulse Resp B/P (MAP) Pulse Ox O2 Delivery O2 Flow Rate FiO2 07/23/19 14:00 98.2 68 16 128/78 (95) 96 Room Air 07/21/19 08:00 1.0 I&O- Last 24 Hours up to 6 AM 07/23/19 06:00 Intake Total 1340 ml Output Total 2600 ml Balance -1260 ml ROB PENNY MD Jul 23, 2019 17:37
[2019-07-23] MEDS ORDERED: POTASSIUM CHLORIDE 10 MEQ SR TABLET PO ONE (18:00)
[2019-07-23] MEDS: PANTOPRAZOLE 40MG TAB (PROTONIX) PO SCH (18:06)
[2019-07-23] MEDS: AZITHROMYCIN 250 MG TAB PO SCH (21:19)
[2019-07-23 22:00] VITALS: BP 135/76
[2019-07-24 06:00] VITALS: BP 130/74
[2019-07-24] MEDS: guaiFENesin 200 MG TAB PO SCH ×4 (06:20→23:37)
[2019-07-24 07:09] LABS: MEAN CORPUSCULAR HEMOGLOBIN 28.6 pg (27.0-33.0); MEAN CORPUSCULAR HGB CONC 31.6 g/dl (32.0-36.5); MEAN CORPUSCULAR VOLUME 90.5 fl (80.0-96.0); PLATELET COUNT, AUTOMATED 220 10^3/uL (150-450); WHITE BLOOD COUNT 7.2 10^3/uL (4.0-10.0)
[2019-07-24 07:34] LABS: ALBUMIN 2.1 GM/DL (3.2-5.2); BILIRUBIN,TOTAL 0.6 MG/DL (0.2-1.0); CALCIUM LEVEL 8.9 MG/DL (8.8-10.2); CREATININE FOR GFR 3.13 MG/DL (0.70-1.30); GLOMERULAR FILTRATION RATE 20.2 (>35); POTASSIUM SERUM 3.6 MEQ/L (3.5-5.1)
[2019-07-24] MEDS: HEPARIN SOD (PORCINE) 5000 UNITS/ML VIAL (J1644 PER 1000UNITS) SC SCH ×2 (09:29→20:19)
[2019-07-24] MEDS: SUCRALFATE SUSP 1GM/10ML UD PO SCH ×3 (09:29→17:17)
[2019-07-24] MEDS: PANTOPRAZOLE 40MG TAB (PROTONIX) PO SCH (09:30)
[2019-07-24] MEDS: METOPROLOL SUCC (TopROL XL) 50MG **XL** TAB PO SCH ×2 (09:30→20:15)
[2019-07-24] MEDS: cefTRIAXone SOD 1 GM in D5W MINI-BAG PLUS 50 ML IV SCH ×2 (09:31→20:19)
[2019-07-24] MEDS: DORZOLAMIDE 2% OPHTH SOLN 10 ML BTL OU SCH ×3 (09:31→20:20)
--- NOTE | 2019-07-24 09:47 | IPNPDOC ---
Text Note Date of Service The patient was seen on 07/24/19. NOTE SUBJECTIVE: No complaints this morning. says feeling better. However says he is very weak. He says he could not even stand up yesterday which upset him. He understands that he will have to go to rehab to gain back his strength. He is sitting up alert oriented and eating his breakfast. Objective Physical Examination General Exam: Positive: Alert, Cooperative, No Acute Distress, Other (thin, frail ) Eye Exam: Positive: Conjunctiva & lids normal; Negative: Sclera icteric ENT Exam: Positive: Atraumatic, Mucous membr. moist/pink, Pharynx Normal Neck Exam: Positive: Supple; Negative: JVD Chest Exam: Positive: Diminished (LLQ with diffuse crackles at athe bases L>>R ). No wheezing or ronchi. Heart Exam: Positive: Rate Normal, Regular Rhythm, Normal S1, S2, no rub, murmur or gallop. Abdomen Exam: Positive: Normal bowel sounds, Soft; Negative: Tenderness Extremity Exam: Positive: Edema, Other (amputation Left AKA); Negative: Clubbing, Cyanosis Skin Exam: Positive: Nl turgor and temperature Neuro Exam: Positive: Normal Speech, Cranial Nerves 3-12 NL Psych Exam: Positive: Mood NL, Oriented x 3 Assessment /Plan Mr. Gastelum is an 89 year old male who was transported to [facility] ED after he was found in his home by his son with altered mental status, covered in his own urine and feces. Pt CXR revealed that he has a LLL Pneumonia. He is currently being treated with Azithromycin and Rocephin. 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 She will provide the name of the pt's PCP to us. She is unaware of him being treated for or having any chronic heart or kidney disease. She reported at his baseline, her father is very independent - drives to visit her family an hour away 1-2 times per week. She denied him being incontinent at baseline. She would like him to move closer to her to an elderly community when he can. Per Dr. Penny - Pt home was in poor shape prior to admission. Pt reported that he, his son and grandchild who lived in the home had been sick for some time and unable to clean up. Adult Protective services are now involved. CT ABD & PELVIS W/O CONTRAST IMPRESSION: "No acute findings in the abdomen and pelvis on this noncontrast examination. There is consolidation in the left lower lobe which is only partially imaged and could be due to subsegmental atelectasis, pneumonia or less likely a mass. There is a small left pleural effusion. Bladder wall thickening which may be associated with prostatic hypertrophy. There is mild bilateral hydronephrosis without hydroureters." Chest, 2 view PA, Lat Impression: "Left lower lobe consolidation / opacity. Follow up required." CT Head without contrast IMPRESSION: "No acute intracranial findings." Acute metabolic encephlopathy -due to pneumonia -present on admission now resolved CAP, LLL - currently treated with Rocephin and Azithromycin - continue incentive spirometry, Guaifenesin - sputum not available. - blood cultures x 2 - negative False positive troponin -due to JENNY. -EKG - prior inferior infarct, moderate ST depression with baseline artefact pos sibly affecting interpretation -No acute changes, no chest pain. -ECHO - limited but at least grade 1 LV diastolic dysfunction HFpEF - per ECHO, likely chronic - will hold of on further lasix and patient is high negative balance of 1900. JENNY on CKD III - Cr from 02/04/19 (PCP in [place]) 2.3 -JENNY due to obstructive uropathy most likely. CT with mild bilateral hydro -Mackenzie placement produced > 900 ml urine. -Now creatinine improving with the relief of obs. Acute Urinary Retention - likely 2/[address] - continue Mackenzie catheter with strict I&Os -will continue mackenzie on discharge -will have to set up urology referral. Hypertension -continue metoprolol Mild hypokalemia replaced. Physical deconditioning with amputation LLE - chronic - PT/OT assessment and treatment GERD - pt reported heartburn to nursing staff - has a Hx of admission requiring GI cocktail d/t heartburn - Protonixand carafate prophy Plan/VTE VTE Prophylaxis Ordered?: Yes (Heparin SQ ) Dispo: Placement on d/c. PFS to work with family. VS,Fishbone, I+O VS, Fishbone, I+O Laboratory Tests 07/24/19 06:30 Vital Signs Date Time Temp Pulse Resp B/P (MAP) Pulse Ox O2 Delivery O2 Flow Rate FiO2 07/24/19 09:30 73 134/71 07/24/19 06:00 97.9 16 96 Room Air 07/21/19 08:00 1.0 I&O- Last 24 Hours up to 6 AM 07/24/19 06:00 Intake Total 760 ml Output Total 1100 ml Balance -340 ml ROB PENNY MD Jul 24, 2019 09:47
[2019-07-24 14:00] VITALS: BP 124/60
[2019-07-24 22:00] VITALS: BP 133/72
[2019-07-25 06:00] VITALS: BP 129/65
[2019-07-25] MEDS: guaiFENesin 200 MG TAB PO SCH ×3 (06:08→17:56)
[2019-07-25 06:57] LABS: HEMATOCRIT 37.8 % (42.0-52.0); HEMOGLOBIN 11.9 g/dl (13.5-17.5); MEAN CORPUSCULAR HEMOGLOBIN 28.8 pg (27.0-33.0); MEAN CORPUSCULAR HGB CONC 31.5 g/dl (32.0-36.5); MEAN CORPUSCULAR VOLUME 91.5 fl (80.0-96.0); PLATELET COUNT, AUTOMATED 218 10^3/uL (150-450); RED BLOOD COUNT 4.13 10^6/uL (4.30-6.10); WHITE BLOOD COUNT 6.9 10^3/uL (4.0-10.0)
[2019-07-25 07:17] LABS: BILIRUBIN,TOTAL 0.4 MG/DL (0.2-1.0); CALCIUM LEVEL 8.4 MG/DL (8.8-10.2); CREATININE FOR GFR 2.67 MG/DL (0.70-1.30); GLOMERULAR FILTRATION RATE 24.2 (>35); POTASSIUM SERUM 3.7 MEQ/L (3.5-5.1); TOTAL PROTEIN 8.2 GM/DL (6.4-8.2)
[2019-07-25] MEDS: SUCRALFATE SUSP 1GM/10ML UD PO SCH ×3 (07:59→17:56)
[2019-07-25] MEDS: HEPARIN SOD (PORCINE) 5000 UNITS/ML VIAL (J1644 PER 1000UNITS) SC SCH ×2 (08:00→20:07)
[2019-07-25] MEDS: PANTOPRAZOLE 40MG TAB (PROTONIX) PO SCH (08:00)
[2019-07-25] MEDS: DORZOLAMIDE 2% OPHTH SOLN 10 ML BTL OU SCH ×3 (08:00→20:07)
[2019-07-25] MEDS: METOPROLOL SUCC (TopROL XL) 50MG **XL** TAB PO SCH ×2 (08:00→20:07)
[2019-07-25] MEDS ORDERED: BISACODYL 10 MG SUPP PR ONE (10:00)
[2019-07-25] MEDS: SENOKOT S TAB PO SCH ×2 (10:20→20:07)
[2019-07-25] MEDS ORDERED: CEFDINIR 300 MG CAP (OMNICEF) PO ONE (10:45)
[2019-07-25 14:00] VITALS: BP 130/73
--- NOTE | 2019-07-25 15:49 | IPNPDOC ---
Text Note Date of Service The patient was seen on 07/25/19. NOTE Subjective Chief Complaint/HPI Mr. Gastelum is an 89 year old male who was transported to [facility] ED after he was found in his home by his son with altered mental status, covered in his own urine and feces. Pt CXR revealed that he has a LLL Pneumonia. He has completed Azithromycin, completes Rocephin today. Pt is seen sitting up in bed, his son is present. He stated he feels much better than when he was first admitted. He is able to sit up now, just suffers from weakness and fatigues easily. He is to be assessed by rehab and welcomes their help. Objective Physical Examination General Exam: Positive: Alert, Cooperative, No Acute Distress, Other (thin, frail ) Eye Exam: Positive: Conjunctiva & lids normal; Negative: Sclera icteric ENT Exam: Positive: Atraumatic, Mucous membr. moist/pink, Pharynx Normal Neck Exam: Positive: Supple; Negative: JVD Chest Exam: Positive: Diminished (LLQ with diffuse crackles throughout b/l lungs L>>R ) Heart Exam: Positive: Rate Normal, Regular Rhythm, Other (distant heart sounds with faint S1S2) Telemetry: Positive: No significant arrhythmia Abdomen Exam: Positive: Normal bowel sounds, Soft; Negative: Tenderness Extremity Exam: Positive: Edema, Other (amputation LLE); Negative: Clubbing, Cyanosis Skin Exam: Positive: Nl turgor and temperature Neuro Exam: Positive: Normal Speech, Cranial Nerves 3-12 NL Psych Exam: Positive: Mood NL, Oriented x 3 Assessment /Plan Assessment Mr. Gastelum is an 89 year old male who was transported to [facility] ED after he was found in his home by his son with altered mental status, covered in his own urine and feces. Pt CXR revealed that he has a LLL Pneumonia. He is currently being treated with Azithromycin and Rocephin. 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 Spoke to Ayana (daughter) 07/21/19 by telephone. She will provide the name of the pt's PCP to us. She is unaware of him being treated for or having any chronic heart or kidney disease. She reported at his baseline, her father is very independent - drives to visit her family an hour away 1-2 times per week. She denied him being incontinent at baseline. She would like him to move closer to her to an elderly community when he can. Per Dr. Penny - Pt home was in poor shape prior to admission. Pt reported that he, his son and grandchild who lived in the home had been sick for some time and unable to clean up. Adult Protective services are now involved. CT ABD & PELVIS W/O CONTRAST IMPRESSION: "No acute findings in the abdomen and pelvis on this noncontrast examination. There is consolidation in the left lower lobe which is only partially imaged and could be due to subsegmental atelectasis, pneumonia or less likely a mass. There is a small left pleural effusion. Bladder wall thickening which may be associated with prostatic hypertrophy. There is mild bilateral hydronephrosis without hydroureters." Chest, 2 view PA, Lat Impression: "Left lower lobe consolidation / opacity. Follow up required." CT Head without contrast IMPRESSION: "No acute intracranial findings." CAP, LLL - currently treated with Rocephin; completed Azithromycin therapy - cough improved - continue incentive spirometry, Guaifenesin - sputum culture and stain - Staph. aureus. MRSA screen pending, low suspicion/rule out - blood cultures x 2 - no growth. Acute Encephalopathy - UTI ruled out; Urine culture = negative - 2/2 to CAP - pt is able to have a sensible conversation this morning. He told me he goes to the doctor in [place], hasn't been in over a year because his car acts up in bad weather. - Records from PCP received Elevated troponin EKG - prior inferior infarct, moderate ST depression with baseline artefact possibly affecting interpretation - pt denied CP - serial troponins have remained stable; CKs WNL - 2/2 JENNY - ECHO - limited but at least grade 1 LV diastolic dysfunction HFpEF - per ECHO, likely chronic - Furosemide on hold as pt maintains negative balance JENNY on CKD III - 2/2 obstructive uropathy. now resolved. - Cr from 02/04/19 (PCP in [place]) 2.3 Urinary Retention - likely 2/[address] - continue Mackenzie catheter with strict I&Os - continue mackenzie on d/c with urology f/u Mild hypokalemia - resolved with supplementation Physical deconditioning with amputation LLE - chronic - PT/OT assessment and treatment GERD - pt reported heartburn to nursing staff - has a Hx of admission requiring GI cocktail d/t heartburn - start Protonix IV and carafate prophy Plueritic CP - resolved Plan/VTE VTE Prophylaxis Ordered?: Yes (Heparin SQ ) Dispo: Placement on d/c. Pt has a bed at [facility] currently; will need to have BM for transition. Family will then move pt to [facility] in [facility]. VS,Fishbone, I+O VS, Fishbone, I+O Laboratory Tests 07/25/19 06:04 Vital Signs Date Time Temp Pulse Resp B/P (MAP) Pulse Ox O2 Delivery O2 Flow Rate FiO2 07/25/19 14:00 98.3 72 17 130/73 (92) 99 Room Air 07/21/19 08:00 1.0 I&O- Last 24 Hours up to 6 AM 07/25/19 06:00 Intake Total 1220 ml Output Total 1525 ml Balance -305 ml LAUREANO GREEN PA-C Jul 25, 2019 15:49
[2019-07-25 22:00] VITALS: BP 130/69
[2019-07-26] MEDS: guaiFENesin 200 MG TAB PO SCH ×2 (00:27→05:22)
[2019-07-26 06:00] VITALS: BP 130/77
[2019-07-26 06:19] LABS: HEMATOCRIT 37.9 % (42.0-52.0); MEAN CORPUSCULAR HEMOGLOBIN 28.5 pg (27.0-33.0); MEAN CORPUSCULAR HGB CONC 31.7 g/dl (32.0-36.5); PLATELET COUNT, AUTOMATED 238 10^3/uL (150-450); RED BLOOD COUNT 4.21 10^6/uL (4.30-6.10); WHITE BLOOD COUNT 6.6 10^3/uL (4.0-10.0)
[2019-07-26 06:34] LABS: ALBUMIN 2.1 GM/DL (3.2-5.2); BILIRUBIN,TOTAL 0.5 MG/DL (0.2-1.0); CALCIUM LEVEL 8.2 MG/DL (8.8-10.2); CREATININE FOR GFR 2.54 MG/DL (0.70-1.30); GLOMERULAR FILTRATION RATE 25.7 (>35); POTASSIUM SERUM 3.7 MEQ/L (3.5-5.1); TOTAL PROTEIN 7.9 GM/DL (6.4-8.2)
[2019-07-26] MEDS: SUCRALFATE SUSP 1GM/10ML UD PO SCH (08:57)
[2019-07-26 08:58] VITALS: BP 130/77
[2019-07-26] MEDS: DORZOLAMIDE 2% OPHTH SOLN 10 ML BTL OU SCH (08:58)
[2019-07-26] MEDS: PANTOPRAZOLE 40MG TAB (PROTONIX) PO SCH (08:58)
[2019-07-26] MEDS: SENOKOT S TAB PO SCH (08:58)
[2019-07-26] MEDS: METOPROLOL SUCC (TopROL XL) 50MG **XL** TAB PO SCH (08:58)
[2019-07-26] MEDS: HEPARIN SOD (PORCINE) 5000 UNITS/ML VIAL (J1644 PER 1000UNITS) SC SCH (08:59)
[2019-07-26] MEDS ORDERED: SUCR1ORA PO (10:13)
[2019-07-26] MEDS ORDERED: PANT40TA3 PO (10:13)
[2019-07-26] MEDS ORDERED: GUAI20TA PO (10:13)
--- NOTE | 2019-07-26 14:02 | DS.PDOC ---
Discharge Summary General Date of Admission Jul 19, 2019 at 23:39 Date of Discharge 07/26/2019 Discharge Summary PROCEDURES PERFORMED DURING STAY: [None]. ADMITTING DIAGNOSES: 1. UTI 2. Elevated Troponin 3. Acute Renal Failure 4. Acute Metabolic Encephalopathy 5. Physical Deconditioning DISCHARGE DIAGNOSES: 1. CAP, Left Lower Lung 2. Acute Encephalopathy 3. Elevated Troponin 4. HFpEF 5. JENNY on CKD III 6. Urinary Retention 7. Mild hypokalemia 8. Physical deconditioning with amputation LLE 9. GERD 10.Pleuritic Chest Pain COMPLICATIONS/CHIEF COMPLAINT: Acute Renal Failure,Elevated Troponin,UTI. HISTORY OF PRESENT ILLNESS: "Patient is 89 years old male with past medical history of hypertension, UTI, chronic kidney diseases stage III was admitted to the hospital with altered mental status. His son stated that he found the patient with altered mental status covered with urine and feces. On admission patient was disoriented, confused. In the ER patient was found to have mildly elevated leukocytes count 11.3, chest x-ray was negative for acute pulmonary infiltrate, troponin was elevated to 0.3, EKG showed depression ST in the anterolateral leads. Creatinine was significantly elevated of 5.5. CT abdomen showed No acute findings in the abdomen and pelvis on this noncontrast examination." HOSPITAL COURSE: Pt was admitted as noted above. He was started on Rocephin and IVF for presumptive UTI. Pt Cr was 5.5 on admission. Imaging showed a LLL pneumonia with effusion. IVF were discontinued, Rocephin continued and Azithromycin added; pt was gently diuresed with Lasix due to effusion. Pt had prn bladder scans 2/2 urinary incontinence, he had a >900cc post catheter output following Sterling Catheter insertion. Urine, blood cultures were negative. Sputum culture +ve for Staph aureus. Family/PFS agreed patient should be placed in a NH Or [facility]IDENT[facility] on d/c as he and his home were in poor condition prior to his admission. Pt was medically optimized and transferred to [facility] for rehab prior to [facility] placement. DISCHARGE MEDICATIONS: Please see below. ALLERGIES: Please see below. PHYSICAL EXAMINATION ON DISCHARGE: VITAL SIGNS: Please see below. General Exam: Positive: Alert, Cooperative, No Acute Distress, Other (thin, frail ) Eye Exam: Positive: Conjunctiva & lids normal; Negative: Sclera icteric ENT Exam: Positive: Atraumatic, Mucous membr. moist/pink, Pharynx Normal Neck Exam: Positive: Supple; Negative: JVD Chest Exam: Positive: Diminished (LLQ with diffuse crackles throughout b/l lungs L>R ) Heart Exam: Positive: Rate Normal, Regular Rhythm, Other (distant heart sounds with faint S1S2) Telemetry: Positive: No significant arrhythmia Abdomen Exam: Positive: Normal bowel sounds, Soft; Negative: Tenderness Extremity Exam: Positive: Edema, Other (amputation LLE); Negative: Clubbing, Cyanosis Skin Exam: Positive: Nl turgor and temperature Neuro Exam: Positive: Normal Speech, Cranial Nerves 3-12 NL Psych Exam: Positive: Mood NL, Oriented x 3 LABORATORY DATA: Please see below. IMAGING: CT ABD & PELVIS W/O CONTRAST IMPRESSION: "No acute findings in the abdomen and pelvis on this noncontrast examination. There is consolidation in the left lower lobe which is only partially imaged and could be due to subsegmental atelectasis, pneumonia or less likely a mass. There is a small left pleural effusion. Bladder wall thickening which may be associated with prostatic hypertrophy. There is mild bilateral hydronephrosis without hydroureters." Chest, 2 view PA, Lat Impression: "Left lower lobe consolidation / opacity. Follow up required." CT Head without contrast IMPRESSION: "No acute intracranial findings." Chest, 2 view PA, Lat Impression: Left lower lobe opacity. ACTIVITY: [As tolerated]. DIET: Regular DISCHARGE PLAN: Discharge to [facility] for rehab; long-term placement closer to family. Urology referral for retention 2/2 obstruction. DISPOSITION: Discharge to [facility] DISCHARGE INSTRUCTIONS: 1. see above ITEMS TO FOLLOWUP ON ON OUTPATIENT: 1. see above DISCHARGE CONDITION: [Stable]. TIME SPENT ON DISCHARGE: 31 minutes Vital Signs/I&Os Vital Signs Date Time Temp Pulse Resp B/P (MAP) Pulse Ox O2 Delivery O2 Flow Rate FiO2 07/26/19 08:58 130/77 07/26/19 06:00 97.6 81 20 96 07/25/19 14:00 Room Air 07/21/19 08:00 1.0 I&O- Last 24 Hours up to 6 AM 07/26/19 06:00 Intake Total 850 ml Output Total 900 ml Balance -50 ml Laboratory Data Labs 24H Laboratory Tests 2 07/25/19 21:49: Methicillin-Resist S.aureus DNA PCR NOT DETECTED 07/26/19 05:53: Nucleated Red Blood Cells % (auto) 0.0, Anion Gap 8, Glomerular Filtration Rate 25.7L, Calcium Level 8.2L, Total Bilirubin 0.5, Aspartate Amino Transf (AST/SGOT) 51H, Alanine Aminotransferase (ALT/SGPT) 53, Alkaline Phosphatase 82, Total Protein 7.9, Albumin 2.1L, Albumin/Globulin Ratio 0.36L CBC/BMP Laboratory Tests 07/26/19 05:53 Microbiology Microbiology 07/24/19 Gram Stain - Final, Resulted 07/24/19 Sputum Culture - Preliminary, Resulted Staphylococcus Aureus Yeast Like Organism 07/19/19 Blood Culture - Final, Complete NO GROWTH AFTER 5 DAYS 07/19/19 Blood Culture - Final, Complete NO GROWTH AFTER 5 DAYS 07/19/19 Urine Culture - Final, Complete Discharge Medications Scheduled Brimonidine Tartrate/Timolol (Combigan 0.2%-0.5% Eye Drops) 1 Fifi Fifi, 1 DROP OU BID, (Reported) Dorzolamide HCl (Trusopt) 2% 10ML Drops, 1 DROP OU TID, (Reported) 0700/1100/1500 Guaifenesin (Guaifenesin) 200 Mg Tablet, 400 MG PO Q6H Hydrochlorothiazide (Hydrochlorothiazide) 12.5 Mg Tablet, 12.5 MG PO DAILY, (Rep orted) Metoprolol Succinate (Toprol Xl) 50 Mg Tab, 50 MG PO BID, (Reported) Pantoprazole Sodium (Pantoprazole Sodium) 40 Mg Tablet.dr, 40 MG PO QAM Sucralfate (Sucralfate) 1 Gm/10 Ml Oral.susp, 1 GM PO AC Travoprost (Travatan Z) 50 Drop/2.5 Ml Soln, 1 DROP OU QHS, (Reported) Allergies Coded Allergies: Penicillins (Verified Adverse Reaction, Mild, 07/19/19) GI UPSET LAUREANO GREEN PA-C Jul 26, 2019 14:01
== END 2019-07-26 12:59 | DRG 682 ==
LOC: EDBD 17:34 → M ED 17:34 → M ED INP 23:39 → ENRESERV 07-20 01:39 → M PCU 07-20 03:30 → M MSPAV 07-21 10:57
PROVIDERS: ADMIT Internal Medicine; ATTEND Internal Medicine Nephrology
DX: N17.9 Acute kidney failure, unspecified (principal); J18.9 Pneumonia, unspecified organism; G93.41 Metabolic encephalopathy; I24.8 Other forms of acute ischemic heart disease; I50.32 Chronic diastolic (congestive) heart failure; I13.0 Hypertensive heart and chronic kidney disease with heart failure and stage 1 through stage 4 chronic kidney disease, or unspecified chronic kidney disease; N18.3 Chronic kidney disease, stage 3 (moderate); K21.9 Gastro-esophageal reflux disease without esophagitis; Z79.899 Other long term (current) drug therapy; Z88.0 Allergy status to penicillin; K44.9 Diaphragmatic hernia without obstruction or gangrene; H40.9 Unspecified glaucoma; I25.2 Old myocardial infarction; E87.6 Hypokalemia; N13.30 Unspecified hydronephrosis; Z89.512 Acquired absence of left leg below knee; N40.0 Benign prostatic hyperplasia without lower urinary tract symptoms; E86.0 Dehydration

== ENCOUNTER → 2019-07-28 | Outpatient (REF) ==
[~2019-07-28] MED LIST changes: +GUAI20TA PO; +HYDR12.55 PO; +SUCR1ORA PO; +TRUS1SOL OU
== END ==
LOC: SKLAB5 07:52
PROVIDERS: ATTEND Internal Medicine
DX: M85.80 Other specified disorders of bone density and structure, unspecified site (principal)

== ENCOUNTER → 2019-08-08 | Outpatient (REF) ==
[2019-08-08 08:29] LABS: CREATININE FOR GFR 2.45 MG/DL (0.70-1.30); GLOMERULAR FILTRATION RATE 26.8 (>35); POTASSIUM SERUM 3.1 MEQ/L (3.5-5.1)
== END ==
LOC: SKLAB5 08:16
PROVIDERS: ATTEND Internal Medicine
DX: I25.10 Atherosclerotic heart disease of native coronary artery without angina pectoris (principal); I10 Essential (primary) hypertension